=== PATIENT | female | born 1970 | race Caucasian/White ===

== ENCOUNTER 2017-12-31 06:20 | Emergency (ER) | payer OTHER ==
[~2017-12-31] VITALS: Ht 149.9 cm; Wt 74.4 kg
[~2017-12-31 06:20] MED LIST: ALBIPROI INH; ALBU90OI61 INH; AZIT250 PO; Antivert25 MG PO; CYCL10 PO; ERYT500 PO; FAMO10 PO; HYDACE10B PO; HYDACE5 PO; LORA1 PO; META800 PO; NAPR500 PO; Norco 5-325 Ta1 EACH PO; OMEP20ER PO; OXYACE5T PO; PRED20 PO; PROM25 PO; RXCYCL10 PO; RXOXYACE PO; SULTRIDS PO; Zofran Odt4 MG SL
[2017-12-31] MEDS ORDERED: Zithromax250 MG PO (07:59)
[2017-12-31] MEDS ORDERED: Prednisone20 MG PO (07:59)
[2017-12-31] MEDS ORDERED: ALBU90OI6 INH (07:59)
== END 2017-12-31 08:10 | disposition home or self-care (01) ==
LOC: ER 06:20
DX: J45.901 Unspecified asthma with (acute) exacerbation (principal); F17.210 Nicotine dependence, cigarettes, uncomplicated; Z79.51 Long term (current) use of inhaled steroids; Z88.0 Allergy status to penicillin; Z88.5 Allergy status to narcotic agent
CPT/HCPCS: 71046; 94640; 99285-25

== ENCOUNTER 2018-01-02 01:33 | Emergency (ER) | payer OTHER ==
[~2018-01-02] VITALS: Ht 149.9 cm; Wt 71.7 kg
[~2018-01-02 01:33] MED LIST changes: +ALBU90OI6 INH; +Prednisone20 MG PO; +Zithromax250 MG PO
[2018-01-02 02:06] LABS: BASOPHILS ABSOLUTE AUTO 0.04 K/mm3 (0.00-0.23); BASOPHILS PERCENT AUTO 0 % (0-2); EOSINOPHILS ABSOLUTE AUTO 0.02 K/mm3 (0.00-0.68); EOSINOPHILS PERCENT AUTO 0 % (0-6); Hemoglobin 14.1 g/dL (11.5-16.0); IMMATURE GRAN ABSOLUTE AUTO 0.03 K/mm3 (0.00-0.10); IMMATURE GRAN PERCENT AUTO 0 % (0-1); LYMPHOCYTES ABSOLUTE AUTO 0.68 K/mm3 (0.84-5.20); LYMPHOCYTES PERCENT AUTO 7 % (21-46); MONOCYTES ABSOLUTE AUTO 0.19 K/mm3 (0.16-1.47); MONOCYTES PERCENT AUTO 2 % (4-13); Mean Corpuscular HGB 31.7 pg (26.0-34.0); Mean Corpuscular HGB Conc 34.4 g/dL (31.5-36.5); Mean Corpuscular Volume 92 fL (80-100); NEUTROPHILS ABSOLUTE AUTO 8.94 K/mm3 (1.96-9.15); NEUTROPHILS PERCENT AUTO 90 % (41-73); Platelet Count 328 K/mm3 (150-400); RDW Coefficient Variation 13.2 % (11.7-14.2); RDW Standard Deviation 44.3 fL (35.1-46.3); Red Blood Cell Count 4.45 M/mm3 (3.80-5.20)
[2018-01-02 02:25] LABS: Anion Gap 11 mmol/L (6-16); Blood Urea Nitrogen 22 mg/dL (8-24); Bun/Creatinine Ratio 38.1 (12.0-20.0); CO2, Blood 23 mmol/L (21-32); Calcium, Blood 8.6 mg/dL (8.5-10.1); Chloride, Blood 104 mmol/L (98-108); Creatinine, Blood 0.58 mg/dL (0.40-1.00); Glomerular Filtration Rate >60 (60-); Glucose, Blood 155 mg/dL (70-99); Potassium, Blood 3.8 mmol/L (3.5-5.5); Sodium, Blood 138 mmol/L (136-145); Troponin I <0.015 ng/mL (0.000-0.040)
[2018-01-02] MEDS ORDERED: FLUT1DIS2 INH (02:45)
== END 2018-01-02 03:08 | disposition home or self-care (01) ==
LOC: ER 01:33
PROVIDERS: Emergency Medicine
DX: J45.901 Unspecified asthma with (acute) exacerbation (principal); F17.210 Nicotine dependence, cigarettes, uncomplicated; Z88.0 Allergy status to penicillin; Z88.5 Allergy status to narcotic agent; Z79.899 Other long term (current) drug therapy; Z79.51 Long term (current) use of inhaled steroids
CPT/HCPCS: 36415; 71046; 80048; 84484; 85025; 93005; 93010; 94644; 96361; 96374; 99285-25; J2930; J7030

== ENCOUNTER 2018-02-20 22:50 | Emergency (ER) | payer OTHER ==
[~2018-02-20] VITALS: Ht 149.9 cm; Wt 79.4 kg
[~2018-02-20 22:50] MED LIST changes: +FLUT1DIS2 INH
[2018-02-21 00:57] LABS: Source, Urine Clean Catch
[2018-02-21 01:10] LABS: Appearance, Urine Clear (Clear); Color, Urine Yellow (P-Yellow)
[2018-02-21 01:11] LABS: Bilirubin, Urine Neg (Neg); Blood, Urine 1+ (Neg); Glucose Qualitative, Urine Neg (Neg); Ketones, Urine Neg (Neg); Leukocyte Esterase, Urine 1+ (Neg); Nitrite, Urine Neg (Neg); Protein, Urine Neg (Neg); Specific Gravity, Urine 1.025 (1.003-1.022); Urobilinogen, Urine NORM (Normal)
[2018-02-21 01:13] LABS: Bacteria Mod /hpf; Red Blood Cells, Urine Not Seen /hpf (0-2); Squamous Epithelial Cells Mod /hpf (Few)
[2018-02-21 02:53] LABS: BASOPHILS ABSOLUTE AUTO 0.07 K/mm3 (0.00-0.23); BASOPHILS PERCENT AUTO 1 % (0-2); EOSINOPHILS ABSOLUTE AUTO 0.15 K/mm3 (0.00-0.68); EOSINOPHILS PERCENT AUTO 2 % (0-6); Hematocrit 39.8 % (33.0-51.0); Hemoglobin 13.3 g/dL (11.5-16.0); IMMATURE GRAN ABSOLUTE AUTO 0.04 K/mm3 (0.00-0.10); IMMATURE GRAN PERCENT AUTO 0 % (0-1); LYMPHOCYTES ABSOLUTE AUTO 2.27 K/mm3 (0.84-5.20); LYMPHOCYTES PERCENT AUTO 24 % (21-46); MONOCYTES ABSOLUTE AUTO 0.78 K/mm3 (0.16-1.47); MONOCYTES PERCENT AUTO 8 % (4-13); Mean Corpuscular HGB 32.2 pg (26.0-34.0); Mean Corpuscular HGB Conc 33.4 g/dL (31.5-36.5); Mean Corpuscular Volume 96 fL (80-100); Mean Platelet Volume 8.9 fL (9.1-12.4); NEUTROPHILS ABSOLUTE AUTO 6.01 K/mm3 (1.96-9.15); NEUTROPHILS PERCENT AUTO 64 % (41-73); Platelet Count 327 K/mm3 (150-400); RDW Coefficient Variation 13.2 % (11.7-14.2); RDW Standard Deviation 47.7 fL (35.1-46.3); Red Blood Cell Count 4.13 M/mm3 (3.80-5.20); White Blood Cell Count 9.32 K/mm3 (4.00-11.30)
[2018-02-21 03:11] LABS: Alanine Aminotransfer (ALT/SGP 28 U/L (12-78); Albumin, Blood 3.2 g/dL (3.4-5.0); Albumin/Globulin Ratio 0.9 (0.8-1.8); Alk Phos 60 U/L (50-136); Anion Gap 7 mmol/L (6-16); Aspartate Aminotrans (AST/SGOT 17 U/L (12-37); Bilirubin, Total 0.4 mg/dL (0.1-1.0); Blood Urea Nitrogen 14 mg/dL (8-24); CO2, Blood 27 mmol/L (21-32); Calcium, Blood 8.2 mg/dL (8.5-10.1); Chloride, Blood 105 mmol/L (98-108); Creatinine, Blood 0.54 mg/dL (0.40-1.00); Globulin, Blood 3.4 g/dL (2.2-4.0); Glomerular Filtration Rate >60 (60-); Glucose, Blood 117 mg/dL (70-99); Potassium, Blood 3.5 mmol/L (3.5-5.5); Sodium, Blood 139 mmol/L (136-145); Total Protein, Blood 6.6 g/dL (6.4-8.2)
== END 2018-02-21 04:41 | disposition home or self-care (01) ==
LOC: ER 22:50
PROVIDERS: Emergency Medicine
DX: R10.11 Right upper quadrant pain (principal); J45.909 Unspecified asthma, uncomplicated; F17.210 Nicotine dependence, cigarettes, uncomplicated; Z88.0 Allergy status to penicillin; Z88.5 Allergy status to narcotic agent; Z79.899 Other long term (current) drug therapy
CPT/HCPCS: 36415; 76705; 80053; 81001; 81025; 83690; 85025; 87077; 87086; 87186; 96361; 96374; 96375; 99284-25; J1170; J2405; J7030

== ENCOUNTER 2018-09-03 18:59 | Emergency (ER) | payer OTHER ==
[~2018-09-03] VITALS: Ht 152.4 cm; Wt 83.9 kg
[2018-09-03] MEDS ORDERED: Percocet 5-3251 EACH PO (20:27)
[2018-09-03] MEDS ORDERED: CYCL10 PO (20:27)
== END 2018-09-03 20:44 | disposition home or self-care (01) ==
LOC: ER 18:59
DX: M51.16 Intervertebral disc disorders with radiculopathy, lumbar region (principal); M41.9 Scoliosis, unspecified; J45.909 Unspecified asthma, uncomplicated; F17.210 Nicotine dependence, cigarettes, uncomplicated; Z88.0 Allergy status to penicillin; Z88.5 Allergy status to narcotic agent
CPT/HCPCS: 72100; 99283-25; A9270-GY

== ENCOUNTER 2018-12-04 10:40 | Emergency (ER) | payer OTHER ==
[~2018-12-04] VITALS: Ht 149.9 cm; Wt 81.7 kg
[~2018-12-04 10:40] MED LIST changes: +Percocet 5-3251 EACH PO
[2018-12-04] MEDS ORDERED: Flonase 0.05% N16 GM (12:08)
[2018-12-04] MEDS ORDERED: Prednisone20 MG PO (12:08)
[2018-12-04] MEDS ORDERED: MONT10T PO (12:08)
[2018-12-04] MEDS ORDERED: TRIA15CR3 TOP (12:08)
== END 2018-12-04 12:19 | disposition home or self-care (01) ==
LOC: ER 10:40
DX: J45.909 Unspecified asthma, uncomplicated (principal); F17.210 Nicotine dependence, cigarettes, uncomplicated; M41.9 Scoliosis, unspecified; Z88.0 Allergy status to penicillin; Z88.5 Allergy status to narcotic agent
CPT/HCPCS: 71046; 94640; 99283-25; J7512

== ENCOUNTER 2020-05-30 14:33 | Emergency (ER) | payer OTHER ==
[~2020-05-30] VITALS: Ht 152.4 cm; Wt 81.7 kg
[~2020-05-30 14:33] MED LIST changes: +ALBU90OI INH; +BENZ100A PO; +CLIN300 PO; +Flonase 0.05% N16 GM; +IBUP200 PO; +MONT10T PO; +Oxycodone HCl5 M1 PO; +TRIA15CR3 TOP
[2020-05-30 15:19] LABS: BASOPHILS ABSOLUTE AUTO 0.07 K/mm3 (0.00-0.23); BASOPHILS PERCENT AUTO 1 % (0-2); EOSINOPHILS ABSOLUTE AUTO 0.14 K/mm3 (0.00-0.68); EOSINOPHILS PERCENT AUTO 2 % (0-6); Hematocrit 44.6 % (33.0-51.0); Hemoglobin 14.2 g/dL (11.5-16.0); IMMATURE GRAN ABSOLUTE AUTO 0.03 K/mm3 (0.00-0.10); IMMATURE GRAN PERCENT AUTO 0 % (0-1); LYMPHOCYTES ABSOLUTE AUTO 1.71 K/mm3 (0.84-5.20); LYMPHOCYTES PERCENT AUTO 19 % (21-46); MONOCYTES ABSOLUTE AUTO 0.61 K/mm3 (0.16-1.47); MONOCYTES PERCENT AUTO 7 % (4-13); Mean Corpuscular HGB 28.9 pg (26.0-34.0); Mean Corpuscular HGB Conc 31.8 g/dL (31.5-36.5); Mean Corpuscular Volume 91 fL (80-100); NEUTROPHILS ABSOLUTE AUTO 6.25 K/mm3 (1.96-9.15); NEUTROPHILS PERCENT AUTO 71 % (41-73); Platelet Count 454 K/mm3 (150-400); RDW Coefficient Variation 13.8 % (11.7-14.2); RDW Standard Deviation 45.9 fL (35.1-46.3); Red Blood Cell Count 4.92 M/mm3 (3.80-5.20); White Blood Cell Count 8.81 K/mm3 (4.00-11.30)
[2020-05-30 15:33] LABS: Alanine Aminotransfer (ALT/SGP 29 U/L (12-78); Albumin, Blood 3.5 g/dL (3.4-5.0); Albumin/Globulin Ratio 0.8 (0.8-1.8); Alk Phos 84 U/L (50-136); Anion Gap 10 mmol/L (6-16); Aspartate Aminotrans (AST/SGOT 20 U/L (12-37); Bilirubin, Total 0.6 mg/dL (0.1-1.0); Blood Urea Nitrogen 11 mg/dL (8-24); Bun/Creatinine Ratio 24.1 (12.0-20.0); CO2, Blood 24 mmol/L (21-32); Calcium, Blood 8.8 mg/dL (8.5-10.1); Chloride, Blood 106 mmol/L (98-108); Creatinine, Blood 0.46 mg/dL (0.40-1.00); Globulin, Blood 4.2 g/dL (2.2-4.0); Glomerular Filtration Rate >60 (60-); Glucose, Blood 142 mg/dL (70-99); Potassium, Blood 3.7 mmol/L (3.5-5.5); Sodium, Blood 140 mmol/L (136-145); Total Protein, Blood 7.7 g/dL (6.4-8.2)
[2020-05-30 15:35] LABS: Source, Urine Clean Catch
[2020-05-30 15:49] LABS: Appearance, Urine Hazy (Clear); Bilirubin, Urine Neg (Neg); Blood, Urine 5+ (Neg); Color, Urine Yellow (P-Yellow); Glucose Qualitative, Urine Neg (Neg); Ketones, Urine Neg (Neg); Leukocyte Esterase, Urine 1+ (Neg); Nitrite, Urine Neg (Neg); Protein, Urine 1+ (Neg); Urobilinogen, Urine NORM (Normal)
[2020-05-30 16:15] LABS: Bacteria Many /hpf; Squamous Epithelial Cells Many /hpf (Few)
[2020-05-30] MEDS ORDERED: Cephalexin500 M1 PO (16:54)
[2020-09-17] MEDS ORDERED: Prednisone20 MG PO (19:02)
== END 2020-05-30 17:30 | disposition home or self-care (01) ==
LOC: ER 14:33
PROVIDERS: Physician Assistant
DX: N39.0 Urinary tract infection, site not specified (principal); J45.909 Unspecified asthma, uncomplicated; K21.9 Gastro-esophageal reflux disease without esophagitis; F17.210 Nicotine dependence, cigarettes, uncomplicated; Z88.0 Allergy status to penicillin; Z88.5 Allergy status to narcotic agent
CPT/HCPCS: 36415; 74176; 80053; 81001; 83690; 85025; 87086; 96361; 96374; 96375; 99284-25; A9270; J1885; J2405; J7030

== ENCOUNTER 2021-04-29 06:14 | Emergency (ER) | payer OTHER ==
[~2021-04-29] VITALS: Ht 149.9 cm; Wt 81.7 kg
[~2021-04-29 06:14] MED LIST changes: +Cephalexin500 M1 PO; +Cleocin HCl300 MG PO
[2021-04-29] MEDS ORDERED: Clindamycin HC150 MG PO (06:41)
== END 2021-04-29 06:55 | disposition home or self-care (01) ==
LOC: ER 06:14
DX: K04.7 Periapical abscess without sinus (principal); K02.9 Dental caries, unspecified; J45.909 Unspecified asthma, uncomplicated; E11.649 Type 2 diabetes mellitus with hypoglycemia without coma; F17.200 Nicotine dependence, unspecified, uncomplicated; Z88.0 Allergy status to penicillin; Z88.5 Allergy status to narcotic agent
CPT/HCPCS: 99282; A9270

== ENCOUNTER 2021-06-25 07:09 | Emergency (ER) | payer OTHER ==
[~2021-06-25] VITALS: Ht 149.9 cm; Wt 81.7 kg
[~2021-06-25 07:09] MED LIST changes: +Clindamycin HC150 MG PO
[2021-06-25] MEDS ORDERED: Clindamycin HC150 MG PO (07:39)
== END 2021-06-25 07:54 | disposition home or self-care (01) ==
LOC: ER 07:09
DX: K04.7 Periapical abscess without sinus (principal); F17.210 Nicotine dependence, cigarettes, uncomplicated; Z88.0 Allergy status to penicillin; Z88.5 Allergy status to narcotic agent; J45.909 Unspecified asthma, uncomplicated; E11.9 Type 2 diabetes mellitus without complications; Z86.69 Personal history of other diseases of the nervous system and sense organs
CPT/HCPCS: 96372; 99282-25; A9270; J1885

== ENCOUNTER 2022-08-22 09:24 | Emergency (ER) | payer OTHER ==
[~2022-08-22] VITALS: Ht 152.4 cm; Wt 72.6 kg
[2022-08-22] MEDS ORDERED: Vibramycin100 MG PO (10:14)
[2022-08-22] MEDS ORDERED: Cephalexin500 MG PO (10:14)
== END 2022-08-22 10:54 | disposition home or self-care (01) ==
LOC: ER 09:24
DX: L03.312 Cellulitis of back [any part except buttock and flank] (principal); E11.9 Type 2 diabetes mellitus without complications; F17.210 Nicotine dependence, cigarettes, uncomplicated; Z88.0 Allergy status to penicillin; Z88.5 Allergy status to narcotic agent
CPT/HCPCS: 99283; A9270

== ENCOUNTER 2022-08-24 14:16 | Emergency (ER) | payer OTHER ==
[~2022-08-24] VITALS: Ht 152.4 cm; Wt 72.6 kg
[~2022-08-24 14:16] MED LIST changes: +Cephalexin500 MG PO; +Vibramycin100 MG PO
== END 2022-08-24 17:04 | disposition home or self-care (01) ==
LOC: ER 14:16
DX: L02.212 Cutaneous abscess of back [any part, except buttock and flank] (principal); J45.909 Unspecified asthma, uncomplicated; E11.9 Type 2 diabetes mellitus without complications; F17.210 Nicotine dependence, cigarettes, uncomplicated; Z88.0 Allergy status to penicillin; Z88.5 Allergy status to narcotic agent; Z79.899 Other long term (current) drug therapy
CPT/HCPCS: 10061; 99282-25

== ENCOUNTER 2023-04-28 20:38 | Emergency (ER) | payer OTHER ==
[~2023-04-28] VITALS: Ht 152.4 cm; Wt 68.0 kg
[2023-04-28 20:57] VITALS: BP 121/88
== END 2023-04-28 21:46 | disposition home or self-care (01) ==
LOC: ER 20:38
DX: F41.9 Anxiety disorder, unspecified (principal); J45.909 Unspecified asthma, uncomplicated; E11.9 Type 2 diabetes mellitus without complications; F17.210 Nicotine dependence, cigarettes, uncomplicated; Z88.0 Allergy status to penicillin; Z88.5 Allergy status to narcotic agent
CPT/HCPCS: 99282